=== PATIENT | male | born 1960 | race African-American/Black ===

== ENCOUNTER 2018-07-11 10:01 | Observation (INO) | payer OTHER ==
[2018-07-11] MEDS ORDERED: Aspirin 81 mg CHEW TAB* 81 MG TAB.CHEW PO ONE (10:10)
[2018-07-11] MEDS ORDERED: Nitroglycerin 2% OINT* 1 GM PAK TOPICAL ONE (10:21)
--- NOTE | 2018-07-11 10:52 | ED ---
HPI Chest Pain - HPI Summary HPI Summary: Patient is a 57 y/o male BARON who presents to the ED c/o CP. Hes been having intermittent CP for 2 weeks. This morning around 7:10 he noted 8/10 CP that radiates to his left arm and left neck. He was up all night last night with CP as well. Pain is worsened by breathing. He also c/o diaphoresis, intermittent lightheadedness, and left hand numbness. Patient denies any N/V. PMHx cardiac stents x3, HLD, HTN, and DM. He notes similar CP prior to having his cardiac stents. He has been off blood thinners since 2011 due to a brain hemorrhage. Patient is a smoker. - History of Current Complaint Chief Complaint: EDChestPainROMI Time Seen by Provider: 07/11/18 10:05 Hx Obtained From: Patient Onset/Duration: Started Weeks Ago - 2, Still Present Time of Onset: 07:10 Timing: Intermittent Current Severity: Severe Pain Intensity: 8 Pain Scale Used: 0-10 Numeric Chest Pain Location: Left Anterior Chest Pain Radiates: Yes Chest Pain Radiates To:: Arm, Neck Aggravating Factor(s): Deep Breaths Alleviating Factor(s): Nothing Associated Signs and Symptoms: Positive: Chest Pain, Numbness, Lightheadedness, Diaphoresis. Negative: Nausea, Vomiting Related History: Similar Episode/Dx as: - Prior to stents - Allergy/Home Medications Allergies/Adverse Reactions: Allergies Allergy/AdvReac Type Severity Reaction Status Date / Time NIKOLE Inhibitors AdvReac Mild Coughing Verified 07/11/18 10:38 Home Medications: Home Medications Amitriptyline TAB* [Elavil TAB*] 25 mg PO BEDTIME 07/11/18 [History Confirmed ] Losartan Potassium 100 mg PO DAILY 07/11/18 [History Confirmed 07/11/18] Metoprolol Tartrate 100 mg PO BID 07/11/18 [History Confirmed 07/11/18] hydroCHLOROthiazide [Hydrochlorothiazide] 25 mg PO DAILY 07/11/18 [History Confirmed 07/11/18] PMH/Surg Hx/FS Hx/Imm Hx Endocrine/Hematology History: Reports: Hx Diabetes - TYPE II- ON ORAL AND INSULIN MEDICATION Cardiovascular History: Reports: Hx Coronary Artery Disease - [address]- ~2004, Hx Hypercholesterolemia, Hx Hypertension - ON MEDICATION FOR, Other Cardiovascular Problems/Disorders - Cardiac stents Denies: Hx Pacemaker/ICD Respiratory History: Denies: Hx Pulmonary Embolism Musculoskeletal History: Reports: Other Musculoskeletal History - Carpal tunnel Sensory History: Reports: Hx Contacts or Glasses - GLASSES Denies: Hx Hearing Aid Opthamlomology History: Reports: Hx Contacts or Glasses - GLASSES Neurological History: Reports: Hx Migraine - OFTEN PER PATIENT- TREATS WITH ADVIL, Hx Seizures - 1+ YEAR AGO-AFTER A HEAD INJURY & SURGERY, Other Neuro Impairments/Disorders - Left drop foot, brain hemorrhage - Surgical History Surgery Procedure, Year, and Place: SURGERY FOR HEAD INJURY-. REPAIR OF FRACTURED ARM. LEFT WRIST GANGLION Hx Anesthesia Reactions: No - Immunization History Immunizations Up to Date: Yes Infectious Disease History: No Infectious Disease History: Denies: Traveled Outside the [place] in Last 30 Days - Family History Known Family History: Negative: Hypertension, Diabetes - Social History Alcohol Use: None Hx Substance Use: No Substance Use Type: Reports: None Hx Tobacco Use: Yes Smoking Status (MU): Light Every Day Tobacco Smoker Amount Used/How Often: 1 PACK PER WEEK X 40 YEARS Review of Systems Positive: Skin Diaphoresis Positive: Chest Pain Negative: Vomiting, Nausea Neurological: Other - Lightheadedness Positive: Numbness - Left hand All Other Systems Reviewed And Are Negative: Yes Physical Exam - Summary Physical Exam Summary: VITAL SIGNS: Reviewed. GENERAL: Patient is a well-developed and nourished MALE who is lying comfortable in the stretcher. Patient is not in any acute respiratory distress. HEAD AND FACE: No signs of trauma. No ecchymosis, hematomas or skull depressions. No sinus tenderness. EYES: PERRLA, EOMI x 2, No injected conjunctiva, no nystagmus. EARS: Hearing grossly intact. Ear canals and tympanic membranes are within normal limits. MOUTH: Oropharynx within normal limits. NECK: Supple, trachea is midline, no adenopathy, no JVD, no carotid bruit, no c- spine tenderness, neck with full ROM. CHEST: Symmetric, no tenderness at palpation LUNGS: Clear to auscultation bilaterally. No wheezing or crackles. CVS: Regular rate and rhythm, S1 and S2 present, no murmurs or gallops appreciated. ABDOMEN: Soft, non-tender. No signs of distention. No rebound no guarding, and no masses palpated. Bowel sounds are normal. EXTREMITIES: FROM in all major joints, no edema, no cyanosis or clubbing. NEURO: Alert and oriented x 3. No acute neurological deficits. Speech is normal and follows commands. SKIN: Dry and warm Triage Information Reviewed: Yes Vital Signs On Initial Exam: Initial Vitals Temp Pulse Resp BP Pulse Ox 98.1 F 51 18 162/82 98 07/11/18 10:07 07/11/18 10:07 07/11/18 10:07 07/11/18 10:07 07/11/18 10:07 Vital Signs Reviewed: Yes Diagnostics - Vital Signs Vital Signs Temp Pulse Resp BP Pulse Ox 07/11/18 10:07 98.1 F 51 18 162/82 98 - Laboratory Result Diagrams: 07/11/18 11:17 07/11/18 11:17 Lab Statement: Any lab studies that have been ordered have been reviewed, and results considered in the medical decision making process. - Radiology CXR Xray Interpretation: No Acute Changes - NO EVIDENCE FOR ACTIVE CARDIOPULMONARY DISEASE. ED physician reviewed radiology report. Radiology Interpretation Completed By: Radiologist - EKG 10:05 Cardiac Rate: Bradycardia - 51 bpm EKG Rhythm: Sinus Rhythm EKG Interpretation: ST elevation in II, III, ABF Chest Pain Course/Dx - Course Assessment/Plan: Patient is a 57 y/o male BIBA who presents to the ED c/o CP. He s been having intermittent CP for 2 weeks. This morning around 7:10 he noted 8/ 10 CP that radiates to his left arm and left neck. He was up all night last night with CP as well. Pain is worsened by breathing. He also c/o diaphoresis and intermittent lightheadedness. Patient denies any N/V. PMHx cardiac stents x3 , HLD, HTN, and DM. He notes similar CP prior to having his cardiac stents. He has been off blood thinners since 2012 due to a brain hemorrhage. Patient is a smoker. EKG impression: Normal sinus rhythm with the patient, however the patient has ST depressions in leads II, III and aVF. Blood work without any significant abnormality except for creatinine level of 1.84, glucose of 321 and alkaline phosphatase of 140. The patient was given nitroglycerin and aspirin by EMS. I also placed the patient nitro paste since he was having slight pain in the chest. EKG shows no ST elevations, sinus rhythm, but has ST depressions in leads II, III, and F aVF. Because of the significant comorbidities I discussed my physical exam and findings with Dr. Peterosn from the hospitalist services who accepted the patient for admission. At this point the patient is hemodynamically stable alert and oriented 3. - Chest Pain Differential Diagnosis/HQI/PQRI: Acute OK, ACS, Angina, CHF, Chest Wall, GI Disease, Lower Respiratory Infection, Pulmonary Edema - Diagnoses Provider Diagnoses: Chest pain due to CAD, Renal insufficiency - Provider Notifications Discussed Care Of Patient With: Servando Peterson Time Discussed With Above Provider: 11:50 Instructed by Provider To: Admit As Inpatient Discharge - Sign-Out/Discharge Documenting (check all that apply): Patient Departure - Admit - Discharge Plan Condition: Stable Disposition: ADMITTED TO [facility] - Billing Disposition and Condition Condition: STABLE Disposition: Admitted to [facility] - Attestation Statements Document Initiated by Scribe: Yes Documenting Scribe: Lorena Hogue Provider For Whom Scribe is Documenting (Include Credential): Caleb Huffman MD Scribe Attestation: Lorena Isabel, scribed for Caleb Huffman MD on 07/13/18 at 0905. Scribe Documentation Reviewed: Yes Provider Attestation: The documentation as recorded by the Lorena vinson accurately reflects the service I personally performed and the decisions made by me, Caleb Huffman MD
[2018-07-11 11:30] LABS: ABS Basophils 0.1 10^3/ul (0-0.2); ABS Eosinophils 0.3 10^3/ul (0-0.6); ABS Lymphocytes 2.4 10^3/ul (1.0-4.8); ABS Monocytes 0.4 10^3/ul (0-0.8); ABS Nucleated RBC 0 10^3/ul; Eosinophil % 4.1 % (0-6); Hematocrit 43 % (42-52); Lymphocyte % 39.6 % (25-47); Mean Corpuscular HGB Conc 35 g/dl (31-36); Mean Corpuscular Hemoglobin 31 pg (27-31); Mean Corpuscular Volume 89 fL (80-94); Mean Platelet Volume 9.3 um3 (7.4-10.4); Nucleated Red Blood Cells % 0.3; Platelet Count 296 10^3/ul (150-450); Red Cell Distribution Width 13 % (10.5-15); White Blood Count 6.1 10^3/ul (3.5-10.8)
[2018-07-11 11:50] LABS: EGFR Non-African American 38.4 (>60)
--- NOTE | 2018-07-11 11:59 | RAD ---
INDICATION: Chest pain. COMPARISON: There are no relevant prior studies available for comparison. TECHNIQUE: AP and lateral views of the chest were obtained. FINDINGS: The heart is within normal limits in size. Mediastinal and hilar contours appear within normal limits. The lungs are clear. No pleural effusion is present. IMPRESSION: NO EVIDENCE FOR ACTIVE CARDIOPULMONARY DISEASE.
[2018-07-11] MEDS ORDERED: Nitroglycerin TAB 0.4 MG* 0.4 MG TAB SL PRN (12:19)
--- NOTE | 2018-07-11 12:26 | ADMNOTE ---
Subjective Date of Service: 07/11/18 Interval History: ADMISSION HISTORY AND PHYSICAL EXAM: Allergies Allergy/AdvReac Type Severity Reaction Status Date / Time NIKOLE Inhibitors AdvReac Mild Coughing Verified 07/11/18 10:38 Home Medications Medication Instructions Recorded Confirmed Type Atorvastatin* [Lipitor*] 10 mg PO QPM 11/18/16 07/11/18 History Insulin GLARGINE(*) [Lantus(*)] 55 units SUBCUT QPM 11/18/16 07/11/18 History Insulin LISPRO* [HumaLOG*] 0 unit SUBCUT 0800,1700 11/18/16 07/11/18 History amLODIPine TAB* [Norvasc TAB*] 10 mg PO QAM 11/18/16 07/11/18 History Amitriptyline TAB* [Elavil TAB*] 25 mg PO BEDTIME 07/11/18 07/11/18 History Losartan Potassium 100 mg PO DAILY 07/11/18 07/11/18 History Metoprolol Tartrate 100 mg PO BID 07/11/18 07/11/18 History hydroCHLOROthiazide 25 mg PO DAILY 07/11/18 07/11/18 History [Hydrochlorothiazide] HPI: The patient states he has had chest pain for about a week off and on. It occurred many times during the last night while he lay in bed. He states it is the same pain he had when he had heart trouble in the past. Family History: Findings - Father of alcoholism. Mother A&W. 14 sibs. Oldest brother of heart disease in his 50's. Social History: Findings - Smokes. No alcohol abuse. SDM is his mother Danielle Tang. Past Medical History: Findings - 3 cardiac stents, 2 caths, last one 2011 [facility]. L [facility]. Head trauma with surgery ? evactuation of hematoma or yee hole. Review of Systems - Measurements Intake and Output: Intake and Output Last 24 Hours 07/09/18 07/10/18 07/11/18 07/12/18 06:59 06:59 06:59 06:59 Weight 170 lb - Review of Systems Constitutional Symptoms: Positive: Weight Gain - 20 lbs since incarceration 4 yrs ago. Dermatology: Negative: Normal, Rash, Skin Lesions, Cancer, Skin Lumps, Other HEENT: Positive: Normal Eyes: Positive: Normal Thyroid: Positive: Normal Pulmonary: Positive: Normal Cardiology: Positive: Chest Pain Gastroenterology: Positive: Normal Genital - Urinary: Positive: Normal Musculoskeletal: Negative: Joint Pain, Joint Stiffness, Arthritis, Osteoporosis, Low Back Pain , Sciatica, Joint Deformities, Kyphoscoliosis, Other Endocrinology: Positive: Normal Hematologic/Lymphatic: Negative: Anemia, Easy Brusing, Hx Leukemia, Hx Lymphoma, Use of Anticoagulant, Use of Antiplatelet Drugs, Other Neurology: Positive: Other - L foot drop and L leg weakness since his head trauma Psychiatry: Positive: Normal Allergic/Immunologic: Negative: Hx Anaphylaxis, Hx Angioedema, Hx Environmental, Hx Seasonal, Athsma, Hx HIV, Immunocompromise, Swollen Glands LymphNodes, Other Objective Active Medications: Amitriptyline HCl (Elavil Tab*) 25 mg PO BEDTIME WOOD Amlodipine Besylate (Norvasc Tab*) 10 mg PO QAM [facility] Aspirin (Aspirin 81 Mg Chew Tab*) 81 mg PO DAILY WOOD Atorvastatin Calcium (Lipitor*) 10 mg PO QPM [facility] Enoxaparin Sodium (Lovenox(*)) 40 mg SUBCUT Q24H WOOD Insulin Glargine (Lantus(*)) 45 units SUBCUT QPM [facility] Metoprolol Tartrate (Lopressor Tab*) 100 mg PO BID WOOD Nitroglycerin (Nitroglycerin Tab 0.4 Mg*) 0.4 mg SL Q5M PRN PRN Reason: ANGINA Non-Formulary Medication (Hydrochlorothiazide [Hydrochlorothiazide]) 25 mg PO DAILY WOOD Non-Formulary Medication (Losartan Potassium [Losartan Potassium]) 100 mg PO DAILY [facility] Vital Signs - 8 hr 07/11/18 10:07 Temperature 98.1 F Pulse Rate 51 Respiratory 18 Rate Blood Pressure 162/82 (mmHg) O2 Sat by Pulse 98 Oximetry Oxygen Devices in Use Now: None Appearance: Alert, partly up on ED stretcher. Neutral affect. Looks comfortable. Eyes: No Scleral Icterus Ears/Nose/Mouth/Throat: Clear Oropharnyx, Mucous Membranes Moist Neck: NL Appearance and Movements; NL JVP, No Thyroid Enlargement, Masses Respiratory: Symmetrical Chest Expansion and Respiratory Effort, Clear to Auscultation, Clear to Percussion Cardiovascular: NL Sounds; No Murmurs; No JVD, RRR, No Edema, - Extremities: No Edema, No Clubbing, Cyanosis, - Skin: No Rash or Ulcers, No Nodules or Sclerosis, - Neurological: Alert and Oriented x 3, NL Sensation Result Diagrams: 07/11/18 11:17 07/11/18 11:17 Assess/Plan/Problems-Billing Assessment: - Patient Problems (1) Chest pain Current Visit: Yes Status: Acute Code(s): R07.9 - CHEST PAIN, UNSPECIFIED SNOMED Code(s): 62008215 Comment: Known CAD s/p coronary stenting. Tele, second troponin, second ECG , chemical stress test 07/12 if troponin wnl. Continue metoprolol, ASA. (2) Diabetes Current Visit: Yes Status: Acute Code(s): E11.9 - TYPE 2 DIABETES MELLITUS WITHOUT COMPLICATIONS SNOMED Code(s): 17733200 Comment: Reduce Lantus to 45 U hs, start Lispro by SS.
[2018-07-11] MEDS: Enoxaparin(*) 40 MG/0.4 ML SYR SUBCUT SCH (14:55)
[2018-07-11] MEDS ORDERED: Dextrose 50% Syringe 50 ML* 25 GM/50 ML SYRINGE IV PUSH PRN (14:58)
[2018-07-11] MEDS ORDERED: Atorvastatin* 10 MG TAB PO SCH (18:00)
[2018-07-11] MEDS ORDERED: Insulin GLARGINE(*) 1 UNITS UNIT SUBCUT SCH (18:00)
[2018-07-11] MEDS: Insulin LISPRO* 1 UNITS UNIT SUBCUT SCH ×2 (18:01→21:37)
[2018-07-11] MEDS ORDERED: Amitriptyline TAB* 25 MG PO SCH (21:00)
[2018-07-11] MEDS: Metoprolol Tartrate TAB* 100 MG TAB PO SCH (21:10)
[2018-07-12 03:39] LABS: Urine Appearance Clear; Urine Blood 1+ (Negative); Urine Color Straw; Urine Ketones Negative (Negative); Urine Protein 2+(100 mg/dL) (Negative); Urine Red Blood Cell 1+(3-5/hpf) (Absent); Urine Specific Gravity 1.015 (1.010-1.030); Urine Urobilinogen Negative (Negative); Urine White Blood Cell Absent (Absent)
[2018-07-12] MEDS: Insulin LISPRO* 1 UNITS UNIT SUBCUT SCH ×2 (08:01→13:59)
[2018-07-12] MEDS: Metoprolol Tartrate TAB* 100 MG TAB PO SCH (08:20)
[2018-07-12] MEDS ORDERED: amLODIPine TAB* 5 MG PO SCH (09:00)
[2018-07-12] MEDS ORDERED: Losartan TAB* 25 MG PO SCH (09:00)
[2018-07-12] MEDS ORDERED: Hydrochlorothiazide TAB* 25 MG PO SCH (09:00)
[2018-07-12] MEDS ORDERED: Aspirin 81 mg CHEW TAB* 81 MG TAB.CHEW PO SCH (09:00)
[2018-07-12] MEDS ORDERED: Regadenoson* 0.4 MG/5 ML SYRINGE ONE (09:58)
--- NOTE | 2018-07-12 13:21 | RAD ---
INDICATION: Chest pain. COMPARISON: Correlation is made with a prior chest x-ray study from July 11, 2018. Technique: A single day myocardial perfusion stress study was performed. Initially the resting study was performed. The patient was given an intravenous injection of 10.2 mCi of technetium 99m tetrofosmin and and the heart was imaged in multiple projections. The patient returned later in the day and under the direction of Dr. Royal, the patient was given intervenous injection of Lexiscan. Subsequently the patient was given intravenous injection of 25.6 mCi of technetium 99m tetrofosmin and the heart was imaged in multiple projections. Images were reconstructed in the axial, sagittal and coronal planes and in a 3-D format. FINDINGS: There appears to be a mild global hypokinesis. The left ventricular ejection fraction is calculated to be 55%. Review of the images demonstrates small area of decreased activity in the anterior wall on the post pharmacologic stress images which appears improved on the resting images. No other focal perfusion abnormalities are seen. The transit ischemic dilatation ratio is 0.94 which is within normal. IMPRESSION: 1. FINDINGS SUGGESTIVE OF A SMALL AREA OF ISCHEMIA IN THE ANTERIOR WALL. 2. MILDLY DECREASED LEFT VENTRICULAR EJECTION FRACTION. ASSESSMENT: Low risk. Based on imaging criteria from ACC/AHA 2002 Guideline Update for the Management of Patients With Chronic Stable Angina Table 23. Noninvasive Risk Stratification.
[2018-07-12] MEDS: Enoxaparin(*) 40 MG/0.4 ML SYR SUBCUT SCH (14:00)
[2018-07-12 16:40] VITALS: BP 159/68
--- NOTE | 2018-07-13 05:22 | DS ---
DISCHARGE SUMMARY: DATE OF ADMISSION: DATE OF DISCHARGE: 07/12/18 HOSPITAL COURSE: This 57-year-old man presented with chest pain. He is a prisoner at [facility], he states he is incarcerated for about 4 years. He states he has been having the pain off and on for about a week. It occurred many times during the night before admission while he lay in bed. He said it was the same pain he had when he had heart trouble in the past. He has prior history of 3 cardiac stents put in on 2 occasions, the last one in 2011. Subsequent to that, he had some head trauma and had some type of intracranial bleeding and requiring surgery, yee hole or evacuation of hematoma. At that point, his aspirin was stopped. I think he had been on clopidogrel as well and that stopped; however, this is several years ago and now many years after, nearly about 6 years after his stent, he certainly can resume his aspirin. There is no indication I think at this time for clopidogrel. The patient was admitted to the telemetry unit. A second troponin level was also within normal limits. The patient had a chemical stress test. The official report is suggesting a small area of anterior wall ischemia. I reviewed the images with Dr. Royal who felt that this was likely not a true positive but more likely an artifact of the technique. The patient's pain improved. As he has known coronary artery disease, I am going to change his medication regimen to be more antianginal. I am going to reduce his amlodipine from 10 to 5 and add on isosorbide mononitrate 30 mg daily. FINAL DIAGNOSES: 1. Atypical chest pain. 2. Diabetes. DISCHARGE MEDICATIONS: 1. Aspirin 81 mg daily. 2. Isosorbide mononitrate 30 mg daily. 3. Nitroglycerin 0.4 mg sublingual every 5 minutes p.r.n. 4. Glargine insulin 55 units every evening. 5. Amlodipine 5 mg daily. 6. Atorvastatin 10 mg every evening. 7. Hydrochlorothiazide 25 mg daily. 8. Amitriptyline 25 mg h.s. 9. Losartan 100 mg daily. 10. Metoprolol 100 mg b.i.d. CONDITION ON DISCHARGE: Stable. DISPOSITION ON DISCHARGE: Returned to Law Enforcement Facility. [id number]/[facility] #: [id number] [place]
[2018-07-13] MEDS ORDERED: amLODIPine TAB* 5 MG PO SCH (09:00)
[2018-07-13] MEDS ORDERED: Isosorbide Mononitrate ER TAB* 30 MG PO SCH (09:00)
== END 2018-07-12 17:13 ==
LOC: ED 10:01 → EEVIPCON 12:26 → MEDTELE 12:26
PROVIDERS: ADMIT Internal Medicine; ATTEND Internal Medicine
DX: R07.89 Other chest pain (principal); E11.9 Type 2 diabetes mellitus without complications; M54.2 Cervicalgia; I25.10 Atherosclerotic heart disease of native coronary artery without angina pectoris; Z95.5 Presence of coronary angioplasty implant and graft; Z82.49 Family history of ischemic heart disease and other diseases of the circulatory system; Z79.899 Other long term (current) drug therapy; Z88.8 Allergy status to other drugs, medicaments and biological substances; F17.210 Nicotine dependence, cigarettes, uncomplicated; Z79.84 Long term (current) use of oral hypoglycemic drugs; Z79.4 Long term (current) use of insulin; R00.1 Bradycardia, unspecified
CPT/HCPCS: 36415; 71046; 78452; 80053; 81003; 81015; 82550; 82553; 82947; 83605; 83735; 83880; 84443; 84484; 85025; 93005; 96372; 99284; A9270-GY; A9502; G0378; J1650; J2785